=== PATIENT | female | born 1995 | race Caucasian/White ===

== ENCOUNTER → 2023-02-06 | Outpatient (CLI) | payer OTHER ==
[2023-02-06 15:58] LABS: Basophils # (A) 0.02 X 10*3/uL (0.00-0.10); Basophils % (A) 0.2 %; Eosinophils # (A) 0.29 X 10*3/uL (0.04-0.35); Eosinophils % (A) 2.8 %; HCT 42.1 % (37.2-46.3); HGB 13.7 g/dL (12.0-15.0); Immature Grans, Automated 0.3 %; Lymphocytes % (A) 13.5 %; MCHC 32.5 g/dL (32.0-37.0); MCV 92.1 fL (80.0-97.0); Mean Platelet Volume 10.3 fL (9.5-12.2); Monocytes # (A) 0.67 X 10*3/uL (0.20-1.00); Monocytes % (A) 6.5 %; NRBC Per 100 WBC 0 /100 WBCS (0.0-0.0); Neutrophils # (A) 7.95 X 10*3/uL (1.80-7.70); Neutrophils % (A) 76.7 %; Platelet Count 305 X 10*3/uL (140-440); RBC 4.57 X 10*6/uL (4.10-5.20); RBC Morphology NORMAL; RDW 12.7 % (11.5-14.5); WBC 10.36 X 10*3/uL (4.50-10.00)
[2023-02-06 16:04] LABS: Rheumatoid Factor, Qnt <10 IU/mL (0-15)
[2023-02-06 16:21] LABS: ALT 59 U/L (8-44); AST 19 U/L (13-35); African American GFR (CKD) 142.8 (60.0-200.0); Albumin 4.6 g/dL (3.8-4.9); Albumin/Globulin Ratio 1.59 (1.60-3.17); Alkaline Phosphatase 130 U/L (41-126); BUN/Creat Ratio 17.33 Ratio (12.00-20.00); Blood Urea Nitrogen 10.4 mg/dL (9.0-27.0); Calcium 9.9 mg/dL (8.7-10.3); Carbon Dioxide 24.4 mmol/L (20.0-27.5); Chloride 100 mmol/L (96-109); Ferritin 79.9 ng/mL (10.0-291.0); GGT 109 U/L (0-38); Globulin 2.9 g/dL (1.6-3.3); Glucose 103 mg/dL (70-110); Iron 59 ug/dL (50-170); Non-African American GFR(CKD) 123.2 (60.0-200.0); Potassium 4.4 mmol/L (3.5-5.5); Sodium 138 mmol/L (135-145); Total Protein 7.5 g/dL (6.2-8.2)
[2023-02-06 17:10] LABS: Hepatitis A Antibody IgM Nonreactive (Nonreactive); Hepatitis B Core IgM Nonreactive (Nonreactive); Hepatitis B Surface Antigen Nonreactive (Nonreactive); Hepatitis C IgG Antibody Nonreactive (Nonreactive)
[2023-02-06 21:50] LABS: Cyclic Citrullinated Pep IgG NEGATIVE (NEGATIVE)
[2023-02-06 21:52] LABS: Cyclic Citrull Pep IgG Unit <1.5 U/mL
[2023-02-07 06:24] LABS: EBV - VCA IgM 27.2 U/mL (<36.0)
[2023-02-09 08:15] LABS: Protein, Total 7.4 g/dL (6.2-8.2)
== END | disposition home or self-care (01) ==
LOC: LABWHC1 10:04
PROVIDERS: ATTEND Family Medicine
DX: R74.8 Abnormal levels of other serum enzymes (principal); R00.2 Palpitations
CPT/HCPCS: 36415; 80053; 80074; 82728; 82977; 83540; 84165; 84480; 84481; 85025; 86038; 86039; 86200; 86431; 86665